=== PATIENT | male | born 1985 | race Caucasian/White ===

== ENCOUNTER 2020-06-18 15:25 | Emergency (ER) | payer OTHER, SELFPAY ==
--- NOTE | 2020-06-18 15:42 | ED.GENADUL_ITS ---
Discharge Plan Disposition Patient Disposition: HOME Condition: Good Discharge Details Clinical Impression: De Quervain's syndrome (tenosynovitis) Primary Care Provider: Jennifer Thakur ED Provider: Alley Jimenez Home Meds and New Rx's Prescriptions: Continued ibuprofen 600 MG tablet 1 tab PO PRN PRNRF: 0 Discharge Instructions Instructions: De Quervain Disease (ED) Additional Instructions: Imaging is reassuring. Primarily concern for de Quervain's tenosynovitis which is inflammation of the tendon. Please encourage rest, ice, elevation. Please continue with splint while pain persist. Please begin using anti-inflammatories regularly. You can use 600 mg of ibuprofen every 6 hours as needed for discomfort. Please follow-up with primary care in 2 weeks if pain is not improving. If you develop any new or worsening symptoms please seek care urgently once again. Referrals: Jennifer Thakur [Primary Care Provider] - Discharge Data Discharge Date/Time-TO BE ENTERED AT DEPARTURE: 06/18/20 17:40 Medical Decision Making Patient is a pleasant D 34 year old male presenting today with c/c of right wrist pain that began insidiously 8 weeks ago. Pain worse with ulnar deviation. Much relieved with rest. Denies trauma, fevers, chills. States that a few weeks ago the radius was, sticking out. Denies N/T. On exma, patient appears nontoxic. He has tenderness with palpation over the distal radius along the lateral edge. Positive [place] test. 2+ distal pulses, brisk capillary refill. Full ROM. No pain over snuff box. Able to abduct thumb against resistance. No palpable deformity, swelling, erythema at this time. He has not taken any analgesics, will give Ibuprofen. With the concern for bony deformity, plan for xr. Primary concerned for de Quervain's at this time. FINDINGS: Bones/joints: Osseous mineralization is normal. There are no inflammatory osseous erosive changes. The joint spaces are maintained without degenerative changes. There are no acute displaced fractures or subluxations. No focal osseous lesions are identified. Soft tissues: There is no soft tissue swelling or soft tissue air. IMPRESSION: Unremarkable. Discussed the findings with the patient. We will place in a thumb spica. Encourage rest, ice, elevation. Tylenol and/or ibuprofen as needed for discomfort. We did discuss that anti-inflammatories would likely be of benefit to help with swelling and inflammation. Advise follow-up with primary care in the next 1 to 2 weeks for reevaluation if symptoms are persisting. Return precautions were discussed. All of his questions and concerns were addressed and he is in agreement this plan. HPI General Mode of arrival: ambulatory . Date/Time Provider Initiated Documentation: 06/18/20 15:42 . Limitations to Documentation: no limitations . Information obtained by: patient and RN notes reviewed . History of Present Illness 34 year old M presents to the emergency department with the chief complaint of right wrist pain, described as mild, with intensity rated at 2 (reports 2/10 when at rest, 8/10 with ulnar deviation). Quality is described as aching and other (shooting with ulnar deviation), and is localized to the right and upper extremity. Patient proximal. Patient started experiencing this week(s) (8) and it has been constant. Immobilization improves symptom(s), Movement worsens symptoms . Patient notes no other symptoms.. Patient did receive the following treatments prior to arrival, none Related Data Home Medications Medication Instructions Recorded Confirmed ibuprofen 1 tab PO PRN PRN 05/22/14 06/18/20 Allergies Allergy/AdvReac Type Severity Reaction Status Date / Time animal dander Allergy Mild stuffy Uncoded 06/18/20 16:32 scollops Allergy Mild n,v Uncoded 06/18/20 16:32 Review of Systems Constitutional Constitutional: Reports as per HPI, Denies chills, Denies fever(s), Denies headache(s) and Denies weakness ENT Ears, Nose, Mouth, and Throat: Denies headache(s) Cardiovascular Cardiovascular: Reports as per HPI Respiratory Respiratory: Reports as per HPI and Denies cough Musculoskeletal Musculoskeletal: Reports as per HPI and Denies tingling Integumentary/Breasts Skin/Breast: Reports as per HPI, Denies rash and Denies wounds Neurologic Neurologic: Reports as per HPI, Denies headache(s), Denies tingling, Denies paresthesias and Denies weakness [facility] Social History Smoking/Tobacco Use Status: Former Tobacco Use Quit Date: 02/16/19 Smoking risk assessment performed?: Yes Alcohol Intake: current Alcohol Intake frequency: a few times a week Alcohol type: beer Drug use: Daily Substance use type: marijuana Do you feel safe at home: Yes Do you feel safe in your relationship?: Yes Exam Const General: cooperative, healthy appearing, comfortable, no acute distress, well developed and well groomed Nutritional Appearance: average body habitus and well nourished Orientation: alert and awake Resp Effort & Inspection: normal respiratory effort, able to speak in complete senten erin and no respiratory distress Cardio Rate: regular rate Rhythm: regular rhythm Skin General skin exam: no rashes or lesions noted Lesions: no lesions Rashes: no rashes Trauma: no lacerations or abrasions Neuro General: patient alert and patient awake Cognition: normal cognition Speech: speech normal Gait: normal gait Motor: muscle tone normal throughout Sensory Exam: no sensory deficits noted Extrem Right upper extremity: normal to inspection, full ROM, normal capillary refill, no joint enlargement, elbow/forearm Details: normal to inspection and normal RO M; no tenderness and no swelling, wrist Details: normal to inspection, tenderness (Positive [place]) Location: of the distal radius, normal ROM, normal vascular exam and radial pulse present; no swelling, no abrasions, no lacerations, no ecchymosis, no crepitus and no deformity and hand Details: normal to inspection, normal capillary refill, neuromotor exam normal, neurosensory exam normal, tendon exam normal, vascular exam Details: radial pulse present and normal capillary refill, normal ROM of fingers and no swelling Psych Appearance: grossly normal and well kempt Mental Status: mental status grossly normal Speech and Movement: speech and movement normal
--- NOTE | 2020-06-18 15:45 | DI.RAD_ITS ---
Exam(s) XR WRIST RT COMPLETE EXAM: XR WRIST RT COMPLETE CLINICAL HISTORY: distal radius pain. TECHNIQUE: 2D digital imaging was performed. COMPARISON: No exams were available for comparison FINDINGS: BONES: No acute fracture is present. No bony destructive lesion is seen. JOINTS: The carpal bones are normally aligned. SOFT TISSUE: Normal. IMPRESSION: Unremarkable radiographs of the right wrist. DATA REPOSITORY: RADIATION DOSE DELIVERED:
[2020-06-18] MEDS: Ibuprofen 600 MG TAB PO (16:14)
[2020-06-18 16:27] VITALS: BP 137/72; PULSE 78; RESP 18; TEMP 37.2; O2SAT 98
--- NOTE | 2020-06-18 17:18 | DI.VRAD_ITS ---
PROCEDURE INFORMATION: Exam: XR Right Wrist Exam date and time: 06/18/2020 5:06 PM Age: 34 years old Clinical indication: Pain; Wrist; Right TECHNIQUE: Imaging protocol: XR Right wrist. Views: 3 or more views. COMPARISON: No relevant prior studies available. FINDINGS: Bones/joints: Osseous mineralization is normal. There are no inflammatory osseous erosive changes. The joint spaces are maintained without degenerative changes. There are no acute displaced fractures or subluxations. No focal osseous lesions are identified. Soft tissues: There is no soft tissue swelling or soft tissue air. IMPRESSION: Unremarkable. Dictated and Authenticated by: Zach Concepcion MD. Ordering:JERRICA Hager MD
== END 2020-06-18 17:40 | disposition home or self-care (01) ==
PROVIDERS: Emergency Provider Physician Assistant; PCP Nurse Practitioner Family
DX: M65.4 Radial styloid tenosynovitis [de Quervain] (principal)
CPT/HCPCS: 29125; 99283; 73110

== ENCOUNTER 2022-07-24 19:39 | Outpatient (REF) | payer SELFPAY | END 2022-07-24 19:40 | disposition home or self-care (01) | LOC: LBN 19:39 | PROVIDERS: PCP Nurse Practitioner Family; Visit Provider Physician Assistant | DX: L03.011 Cellulitis of right finger; L98.8 Other specified disorders of the skin and subcutaneous tissue | CPT/HCPCS: 87077; 87070; 87205 ==

== ENCOUNTER 2023-03-05 13:28 | Emergency (ER) | payer OTHER, SELFPAY ==
[2023-03-05 13:38] VITALS: BP 136/74; PULSE 64; RESP 16; TEMP 36.2; O2SAT 100
--- NOTE | 2023-03-05 14:15 | ED.GENADUL_ITS ---
HPI General Date/Time Provider Initiated Documentation: 03/05/23 13:51 . Limitations to Documentation: no limitations . Information obtained by: patient . HPI Narrative: 37-year-old gentleman without significant past medical history presents for evaluation of acute onset left arm pain. Reports that he was trying to step out of his [employer] truck when he lost balance and reached out with his left arm and fell. He had a yanking sensation of the left arm. Since that time he has noted that he has not been able to use his left arm to pull or push on things. He reports pain in his left bicep area and what feels like a ball under the skin. Pain worse with turning over his forearm. Denies any numbness or tingling.. Related Data Home Medications Medication Instructions Recorded Confirmed ibuprofen 600 mg tablet 1 tab PO PRN PRN 05/22/14 03/05/23 mupirocin 2 % topical ointment 1 applic topical TID #15 grams 07/24/22 03/05/23 Previous Rx's Medication Instructions Recorded mupirocin 2 % topical ointment 1 applic topical TID #15 grams 07/24/22 Allergies Allergy/AdvReac Type Severity Reaction Status Date / Time animal dander Allergy Mild stuffy Uncoded 03/05/23 13:37 scollops Allergy Mild n,v Uncoded 03/05/23 13:37 General Stated Complaint: Orthopedic DORITA: 3 Exam Narrative Exam Narrative: Review of Systems: All systems reviewed & are unremarkable except as noted in HPI and below Well-developed, no acute distress NACT PERRL, normal conjunctiva RRR Unlabored respiratory effort Nondistended abdomen Left shoulder unremarkable, min pain with flexion and extension at the elbow,moderate pain with pronation and supination. No obvious bony deformity, there does appear to be a defect in the distal bicep with proximal muscle retraction No rashes or lesions. no focal neurologic deficits Appropriate mood and affect Course Vital Signs Vital signs: Vital Signs Temperature 36.2 C L 03/05/23 13:38 Pulse 64 03/05/23 13:38 Respiratory Rate 16 03/05/23 13:38 Blood Pressure 136/74 03/05/23 13:38 Pulse Oximetry 100 03/05/23 13:38 Temperature 36.2 C L 03/05/23 13:38 Temperature Source Temporal Artery Scan 03/05/23 13:38 Pulse 64 03/05/23 13:38 Respiratory Rate 16 03/05/23 13:38 Respiratory Effort Normal, Non-Labored 03/05/23 14:10 Blood Pressure 136/74 03/05/23 13:38 Blood Pressure Position Sitting 03/05/23 13:38 Pulse Oximetry 100 03/05/23 13:38 Oxygen Delivery Method Room Air 03/05/23 13:38 Oxygen Flow Rate 0 03/05/23 13:38 Pain Level 8 03/05/23 14:10 Medical Decision Making Emergent evaluation of left arm injury. Initial differential includes biceps tendon tear, muscle tear, fracture. Patient pain is well-controlled at this time. Plan for x-ray imaging to evaluate for fracture. X-ray imaging unremarkable for bony process. High suspicion for bicep tendon rupture so I was able to get an emergent MRI to evaluate facilitate surgical planning. MRI does indicate a full-thickness tendon rupture with retraction of the biceps muscle. Discussed with orthopedic surgery, who will follow the patient in clinic next week for operative management. Patient is stable for discharge with Motrin and Tylenol as needed for pain control, sling for comfort. Weightbearing precautions discussed with patient. Quality:SDOH Health Related Social Needs: No Data to Display PFSH All Active Problems (Updated 03/05/23 @ 15:52 by Tylor Flores MD) Biceps tendon rupture (Acute) De Quervain's syndrome (tenosynovitis) (Acute) Social History Smoking/Tobacco Use Status: Former Tobacco Use Quit Date: 02/16/19 Smoking risk assessment performed?: Yes Alcohol Intake: current Alcohol Intake frequency: a few times a week Alcohol type: beer Drug use: Daily Substance use type: marijuana Do you feel safe at home: Yes Do you feel safe in your relationship?: Yes Discharge Plan Disposition Patient Disposition: Home Condition: Stable Discharge Details Clinical Impression: Biceps tendon rupture Primary Care Provider: Jennifer Thakur ED Provider: Tlyor Flores Home Meds and New Rx's Prescriptions: No Action mupirocin 2 % ointment 1 applic topical TID Qty: 15 0RF ibuprofen 600 MG tablet 1 tab PO PRN PRN Discharge Instructions Instructions: Repairs of the Biceps and Triceps Tendons (DC), Tendon Rupture (ED) Additional Instructions: Orthopedic surgery will contact you for your follow-up appointment next week. You will require surgery. They will coordinate and schedule this with you. Take Motrin and Tylenol as needed for pain. no heavy lifting with left arm
--- NOTE | 2023-03-05 14:26 | DI.RAD_ITS ---
Exam(s) XR ELBOW LT COMPLETE EXAM: XR ELBOW LT COMPLETE CLINICAL HISTORY: arm abel. TECHNIQUE: 2D digital imaging was performed. Three views. COMPARISON: No exams were available for comparison FINDINGS: BONES: No acute fracture is present. No bony destructive lesion is seen. JOINTS: The elbow is normally aligned. No joint effusion is seen. SOFT TISSUE: Normal. IMPRESSION: Unremarkable radiographs of the left elbow. DATA REPOSITORY: RADIATION DOSE DELIVERED:
--- NOTE | 2023-03-05 14:26 | DI.RAD_ITS ---
Exam(s) XR HUMERUS LT EXAM: XR HUMERUS LT CLINICAL HISTORY: arm pain. TECHNIQUE: 2D digital imaging was performed. Two views. COMPARISON: No exams were available for comparison FINDINGS: BONES: No acute fracture is present. No bony destructive lesion is seen. Visualized portion of elbow and shoulder joints are unremarkable. SOFT TISSUE: Normal. IMPRESSION: Unremarkable radiographs of the left humerus. DATA REPOSITORY: RADIATION DOSE DELIVERED:
--- NOTE | 2023-03-05 14:30 | DI.MRI_ITS ---
Exam(s) MR UPPER JOINT LT WO EXAM: MR UPPER JOINT LT WO CLINICAL HISTORY: BICEPS TENDON TEAR. TECHNIQUE: Multiplanar multisequence MRI was performed. COMPARISON: Plain films performed earlier the same day FINDINGS: Elbow joint: No joint effusion. Bones: There is no fracture or contusion pattern. Biceps tendon: Full-thickness tear with severe retraction. Fluid along distal biceps tendon. Brachialis tendon: Intact. No tendinosis. Common flexor tendons: Intact. No tendinosis. Common extensor tendons: Intact. No tendinosis. Soft tissues: Edema anteriorly along distal biceps muscle extending into the forearm. No drainable c ollection. No hematoma. IMPRESSION: Full-thickness tear of the biceps tendon with severe retraction and surrounding fluid. Findings called to Dr. Flores of the emergency department. DATA REPOSITORY:
[2023-03-05] MEDS: Acetaminophen 500 MG TAB 1000 MG PO (16:03)
== END 2023-03-05 16:05 | disposition home or self-care (01) ==
PROVIDERS: Emergency Provider Emergency Medicine; PCP Nurse Practitioner Family
DX: S46.212A Strain of muscle, fascia and tendon of other parts of biceps, left arm, initial encounter (principal); X50.0XXA Overexertion from strenuous movement or load, initial encounter; Y93.89 Activity, other specified; Y92.812 Truck as the place of occurrence of the external cause; Y99.0 Civilian activity done for income or pay; Z87.891 Personal history of nicotine dependence
CPT/HCPCS: 99284; 73060; 73080; 73221

== ENCOUNTER 2023-12-30 02:06 | Outpatient (CLI) | payer OTHER, SELFPAY ==
[2023-12-30 07:56] LABS: ALT 40 U/L (16-63); AST 26 U/L (15-37); Albumin 3.8 g/dL (3.4-5.0); Alkaline Phosphatase 148 U/L (46-116); Anion Gap 5.2 mmol/L (3-11); BUN 17 mg/dL (7-18); Bilirubin, Total 1.79 mg/dL (0.2-1.0); CO2 29.8 mmol/L (21.0-32.0); CREATININE 1.2 mg/dL (0.70-1.30); Calcium 8.8 mg/dL (8.5-10.1); Calculated LDL 123 mg/dL (<100); Chloride 103 mmol/L (98-107); Cholesterol 191 mg/dL (<200); Estimated GFR 80.38 (mL/min/1.73m2); Glucose 104 mg/dL (74-106); HDL Cholesterol 59 mg/dL (40-60); Potassium 4.4 mmol/L (3.5-5.1); Sodium 138 mmol/L (136-145); Total Protein 7.2 g/dL (6.4-8.2); Triglyceride 45 mg/dL (<150)
== END 2023-12-30 02:07 | disposition home or self-care (01) ==
LOC: LBO 02:06
PROVIDERS: PCP Family Medicine; Referring Provider Family Medicine; Visit Provider Family Medicine
DX: Z13.6 Encounter for screening for cardiovascular disorders (principal)
CPT/HCPCS: 36415; 80053; 80061